=== PATIENT | male | born 1970 | race Caucasian/White ===

== ENCOUNTER 2019-05-25 21:17 | Emergency (ER) | payer BC ==
--- NOTE | 2019-05-25 21:27 | Emergency Department Record ---
History of Present Illness - General Chief Complaint: Ankle/Foot Injury Stated Complaint: RT ANKLE PAIN Time Seen by Provider: 05/25/19 21:21 Source: Patient Mode of Arrival: Ambulatory Limitations: No limitations - History of Present Illness Initial Comments: 49 yo male presents to ED for evaluation following an ankle inversion injury that occurred approximately 10 hours ago after stepping down from a step, resulted in an inversion injury. Patient reports taking Tylenol approximately 8 hours ago for his pain symptoms, reports mild weight bearing ability but reports pain with attempted ambulation. Patient denies injury to the foot or proximal fibula region. Patient denies health problems at his baseline. MD Complaint: Ankle injury Onset/Timin -: Hour(s) Injury: Ankle: Right Type of Injury: Inversion Place: Home Severity: Moderate Improves With: Immobilization Worsens With: Weight bearing - Related Data Home Medications Medication Instructions Recorded Confirmed Last Taken No Home Med [NO HOME MEDS] 05/25/19 05/25/19 Unknown Allergies Allergy/AdvReac Type Severity Reaction Status Date / Time No Known Drug Allergies Allergy Verified 05/25/19 21:25 Review of Systems Constitutional: Denies: Chills, Fever, Malaise, Night sweats Eyes: Denies: Eye discharge, Eye pain ENT: Denies: Congestion, Ear pain, Epistaxis Respiratory: Denies: Cough, Dyspnea Cardiovascular: Denies: Chest pain, Dyspnea on exertion, Palpitations Endocrine: Denies: Fatigue, Heat or cold intolerance Gastrointestinal: Denies: Abdominal pain, Nausea, Vomiting Genitourinary: Denies: Incontinence, Retention Musculoskeletal: Reports: Arthralgia, Joint swelling. Denies: Back pain, Gout Skin: Denies: Bruising, Change in color Neurological: Denies: Abnormal gait, Confusion, Headache, Seizure Psychiatric: Denies: Anxiety Hematological/Lymphatic: Denies: Anemia, Blood Clots Physical Exam - General General Appearance: Alert, Oriented x3, Cooperative, Mild distress Limitations: No limitations - Head Head exam: Atraumatic, Normocephalic, Normal inspection Head exam detail: negative: Abrasion, Contusion, Pascal's sign, General tenderness, Hematoma, Laceration - Eye Eye exam: Normal appearance. negative: Conjunctival injection, Periorbital swelling, Periorbital tenderness, Scleral icterus - ENT Ear exam: negative: Auricular hematoma, Auricular trauma Nasal Exam: negative: Active bleeding, Discharge, Dried blood, Foreign body Mouth exam: negative: Drooling, Laceration, Muffled voice, Tongue elevation - Neck Neck exam: Normal inspection. negative: Meningismus, Tenderness - Respiratory Respiratory exam: Normal lung sounds bilaterally. negative: Rales, Respiratory distress, Rhonchi, Stridor - Cardiovascular Cardiovascular Exam: Regular rate, Normal rhythm, Normal heart sounds Peripheral Pulses: 3+: Dorsalis Pedis (R) - GI/Abdominal GI/Abdominal exam: Soft. negative: Rebound, Rigid, Tenderness - Rectal Rectal exam: Deferred - exam: Deferred - Extremities Extremities exam: Joint swelling (STS to the lateral right ankle, pain with palpation to the lateral right ankle, no pain with palpation to the foot/pr oximal fibula. Strong DPP, achilles intact. Compartments of the lower extremity are soft on examination.), Tenderness, Other. negative: Calf tenderness, Pedal edema - Back Back exam: Denies: CVA tenderness (R), CVA tenderness (L) - Neurological Neurological exam: Alert, Normal gait, Oriented X3 - Psychiatric Psychiatric exam: Normal affect, Normal mood - Skin Skin exam: Normal color. negative: Abrasion Type of lesion: negative: abrasion Course - Reevaluation(s) Reevaluation #1: 05/25/19 21:42 Right ankle: No acute fracture Patient was updated on all results Will place in fracture boot with instructions for ice, ibuprofen as needed. Patient appears stable for discharge at this time. Disposition Disposition: Discharge Clinical Impression: Ankle sprain Qualifiers: Encounter type: initial encounter Involved ligament of ankle: anterior talofibular ligament Laterality: right Qualified Code(s): S93.491A - Sprain of other ligament of right ankle, initial encounter Disposition: Home, Self-Care Condition: (2) Stable Instructions: Ankle Sprain (ED) Additional Instructions: Return to ED if your symptoms worsen or if you have any concerns. Ice, Ibuprofen as directed. Follow-up with your family doctor in 3-5 days as directed. Forms: Patient Portal Access Time of Disposition: 21:43 Quality - Quality Measures Quality Measures: N/A - Blood Pressure Screening Does Patient Have Any of the Following: No Blood Pressure Classification: Hypertensive Reading Systolic Measurement: 149 Diastolic Measurement: 96 Screening for High Blood Pressure: < First Hypertensive BP, F/U Documented > [G8950] First Hypertensive Follow-up Interventions: Referral to alternative/primary care provider.
--- NOTE | 2019-05-26 21:10 | RADIOLOGY REPORT ---
EXAM: ANKLE RIGHT 3 VIEWS HISTORY: PATIENT FELL WITH RIGHT LATERAL ANKLE SWELLING AND PAIN. TECHNIQUE: Three views right ankle. COMPARISON: None. ENCOUNTER: Initial. FINDINGS: Prominent soft tissue swelling is seen laterally at the ankle. Small chronic-appearing calcification adjacent to the medial malleolus. No definite acute fracture or dislocation of the ankle identified. Prominent calcaneal spurs both posteriorly and along the plantar surface. IMPRESSION: 1. SOFT TISSUE SWELLING, PARTICULARLY LATERALLY. 2. SOME CHRONIC-APPEARING CALCIFICATION ADJACENT TO THE MEDIAL MALLEOLUS. 3. NO DEFINITE ACUTE FRACTURE OF THE RIGHT ANKLE EVIDENT. 4. PROMINENT CALCANEAL SPURS. JOB NUMBER: [id number] [facility]
== END 2019-05-25 22:17 | disposition home or self-care (01) ==
LOC: ER 21:17
DX: S93.491A Sprain of other ligament of right ankle, initial encounter (principal); W10.9XXA Fall (on) (from) unspecified stairs and steps, initial encounter; Y92.009 Unspecified place in unspecified non-institutional (private) residence as the place of occurrence of the external cause
CPT/HCPCS: 99283